=== PATIENT | male | born 1945 | race Caucasian/White ===

== ENCOUNTER → 2024-07-08 08:59 | Outpatient (REF) | payer OTHER, SELFPAY | LOC: HWRCS 08:59 | PROVIDERS: ATTENDING PHYSICIAN Internal Medicine; FAMILY PHYSICIAN Family Medicine | DX: I10 Essential (primary) hypertension (principal); R94.31 Abnormal electrocardiogram [ECG] [EKG] | CPT/HCPCS: 93306 ==

== ENCOUNTER → 2025-01-05 16:02 | Outpatient (REF) | payer OTHER, SELFPAY | LOC: HWRCS 16:02 | PROVIDERS: FAMILY PHYSICIAN Family Medicine | DX: R06.9 Unspecified abnormalities of breathing (principal); C7A.1 Malignant poorly differentiated neuroendocrine tumors | CPT/HCPCS: 93306 ==